=== PATIENT | male | born 1985 ===

== ENCOUNTER 2018-04-13 07:53 | Emergency (ER) | payer OTHER ==
[2018-04-13] MEDS ORDERED: Ibuprofen TAB* 600 MG PO ONE (08:26)
--- NOTE | 2018-04-13 08:29 | UC ---
FLU HPI - HPI Summary HPI Summary: 32 yo M c/o several days of sore throat, MOON, mild unproductive cough. No fever ( max temp 99), body aches or vomiting. +fatigue. No significant PMH. Has not taken any medications for his symptoms. Family hx noncontributory. meds reveiwed w patient - History of Current Complaint Chief Complaint: UCGeneralIllness Stated Complaint: FLU LIKE SYMPTOMS Time Seen by Provider: 04/13/18 08:21 Hx Obtained From: Patient Onset/Duration: Lasting Days Severity Currently: Mild Severity Initially: Mild Pain Intensity: 6 Associated Signs & Symptoms: Positive: Cough, Sore Throat, Nasal Congestion, Headache. Negative: Fever, Myalgia, Vomiting - Allergy/Home Medications Allergies/Adverse Reactions: Allergies Allergy/AdvReac Type Severity Reaction Status Date / Time No Known Allergies Allergy Verified 04/13/18 08:08 PMH/Surg Hx/FS Hx/Imm Hx Previously Healthy: Yes - Surgical History Surgical History: None - Social History Alcohol Use: None Substance Use Type: None Smoking Status (MU): Never Smoked Tobacco Review of Systems Constitutional: Chills, Fatigue Skin: Negative Eyes: Negative ENT: Sore Throat Respiratory: Cough Cardiovascular: Negative Gastrointestinal: Negative All Other Systems Reviewed And Are Negative: Yes Physical Exam Triage Information Reviewed: Yes Appearance: Well-Appearing, No Pain Distress, Well-Nourished Vital Signs: Initial Vital Signs Temp 98.6 F 04/13/18 08:06 Pulse 84 04/13/18 08:06 Resp 16 04/13/18 08:06 BP 113/64 04/13/18 08:06 Pulse Ox 99 04/13/18 08:06 Vital Signs Reviewed: Yes Eyes: Positive: Conjunctiva Clear ENT: Positive: Pharyngeal erythema, Uvula midline. Negative: Nasal congestion, Nasal drainage, Tonsillar swelling, Tonsillar exudate, Trismus, Muffled voice, Hoarse voice Neck: Positive: Supple, Nontender, No Lymphadenopathy Respiratory: Positive: Lungs clear, No respiratory distress, No accessory muscle use. Negative: Crackles, Rhonchi, Stridor, Wheezing Cardiovascular: Positive: RRR Skin Exam: Normal Skin: Negative: rashes Flu Course/Dx - Course Course Of Treatment: given ibuprofen for MOON - Differential Dx/Diagnosis Differential Diagnosis/HQI/PQRI: Upper Respiratory Infection, Other - pharyngitis Provider Diagnoses: viral illness Discharge - Sign-Out/Discharge Documenting (check all that apply): Patient Departure All imaging exams completed and their final reports reviewed: No Studies - Discharge Plan Condition: Stable Disposition: HOME Prescriptions: Benzonatate CAP* [Tessalon 100 MG CAP*] 100 mg PO TID 7 Days #21 cap Patient Education Materials: Upper Respiratory Infection (ED) Referrals: No Primary Care Phys,NOPCP [Primary Care Provider] - Additional Instructions: no restrictions - Billing Disposition and Condition Condition: STABLE Disposition: Home
== END 2018-04-13 08:39 | disposition home or self-care (01) ==
LOC: UCEAST 07:53
DX: B34.9 Viral infection, unspecified (principal)
CPT/HCPCS: 99202; A9270-GY; G0463